=== PATIENT | female | born 1990 | race Caucasian/White ===

== ENCOUNTER → 2018-01-09 | Outpatient (CLI) | payer OTHER | END | disposition home or self-care (01) | LOC: LAB 10:34 | PROVIDERS: ATTEND Nurse Practitioner Adult Health | DX: N76.0 Acute vaginitis (principal) | CPT/HCPCS: 36415; 87491 ==

== ENCOUNTER 2020-08-07 20:16 | Emergency (ER) | payer OTHER ==
[~2020-08-07] VITALS: Ht 165.1 cm; Wt 81.6 kg
[2020-08-07 20:55] VITALS: BP 145/90
--- NOTE | 2020-08-07 21:44 | ER.PDOC ---
General Chief Complaint: Sore Throat Stated Complaint: SORE THROAT/FEVER Time seen by MD: 21:46 Source: patient Exam Limitations: no limitations History of Present Illness Initial Comments Fever and sore throat today, patient has a history for recurrent Strep infection. No cough, congestion or chest pain. No exposure to any person positive for COVID-19. Timing/Duration: gradual, this morning Associated Symptoms: fever/chills, mod sore throat Severity: moderate Allergies: Coded Allergies: red dye (Verified Allergy, Severe, HIVES, 08/23/13) Past Medical History Medical History: no pertinent history Surgical History: no surgical history Social History Alcohol Use: none Drug Use: none Constitutional: see HPI Nose: no symptoms reported Mouth: no symptoms reported Throat: see HPI Respiratory: no symptoms reported Cardiovascular: no symptoms reported Gastrointestinal: no symptoms reported All Other Systems: Reviewed and Negative Physical Exam General Appearance: alert, no distress Head/Neck: head nml inspection, neck nml inspection, trachea midline, no lymphadenopathy, thyroid nml Eyes: eyes nml inspection, PERRL, no nystagmus Mouth: lips, gums nml, no drooling, no thrush, membranes nml Throat: pharyngeal erythema, tonsillar exudate Respiratory: no resp. distress, lungs clear CVS: reg. rate & rhythm, heart sounds nml, tachycardia Abdomen: non-tender, no organomegaly Extremities: non-tender, ROM nml Skin Exam: Normal Color, Warm/Dry NEURO/PSYCH: oriented X3, mood/effect nml Results/Orders Results/Orders Vital Signs Date Time Temp Pulse Resp B/P (MAP) Pulse Ox O2 Delivery O2 Flow Rate FiO2 08/07/20 20:55 99.3 113 18 99 08/07/20 20:55 99.3 113 18 145/90 (108) 99 08/07/20 20:55 99.3 113 18 ER DEPART Departure Time of Disposition: 21:49 Disposition: 01 HOME, SELF-CARE Impression: Primary Impression: Acute tonsillitis Qualified Codes: J03.90 - Acute tonsillitis, unspecified Additional Impression: Acute pharyngitis, unspecified Qualified Codes: J02.9 - Acute pharyngitis, unspecified Condition: Stable Referrals: LESLY TORRES NP (PCP) PRIMARY CARE PROVIDER Additional Instructions: Prednisone Chloraseptic spray OTC as needed for throat pain Tylenol F/U with your PCP in 5-7 days Return to ED if worsening pain or concerns Duration or Time Spent with Pa: 10 min SOPHIE BALLARD MD Aug 07, 2020 21:44
[2020-08-07] MEDS ORDERED: BICILLIN L-A IM STA (21:46)
[2020-08-07] MEDS ORDERED: BICILLIN L-A IM ONE (21:58)
== END 2020-08-07 22:06 | disposition home or self-care (01) ==
LOC: ER 20:16
DX: J03.90 Acute tonsillitis, unspecified (principal); Z91.041 Radiographic dye allergy status
CPT/HCPCS: 96372; 99283; J0561